=== PATIENT | female | born 1975 | race Caucasian/White ===

== ENCOUNTER 2017-05-31 18:06 | Inpatient (IN) ==
[2017-05-31] MEDS ORDERED: Ondansetron 4 MG/2 ML VIAL IVP ONE ×2 (18:25→20:16)
[2017-05-31] MEDS ORDERED: *HR* HYDROmorphone (PF) 1 MG/ML SYRINGE IVP ONE ×2 (18:28→20:16)
--- NOTE | 2017-05-31 18:30 | Emergency Department Note ---
Disposition Clinical Impression: Small bowel obstruction Disposition: Admitted As Inpatient Condition: Critical Referrals: Taryn Altamirano, ELEVATED GUARD [Primary Care Provider] - Forms: Work/School Release, ED Satisfaction Letter Abdominal Pain HPI - General Chief Complaint: ED Abdominal Pain Stated Complaint: ABD Pain,N/V Time Seen by Provider: 05/31/17 18:23 Source: patient Mode of arrival: ambulatory Limitations: no limitations Nursing Notes Reviewed: Yes Vital Signs Reviewed: Yes - History of Present Illness Pt Subjective Complaint: abdominal pain Onset (ago): hour(s) (2) Consistency: constant Location: diffuse Pain Scale: 10 Quality: stabbing, sharp Radiation: none Migration to: no migration Improves with: nothing Worsens with: nothing Associated symptoms: Reports: nausea Treatments prior to arrival: none - Related Data Home Medications Medication Instructions Recorded Confirmed BuPROPion [Wellbutrin] 75 mg PO DAILY 08/07/16 08/07/16 Paroxetine HCl [Paxil] 10 mg PO DAILY 08/07/16 08/07/16 Previous Rx's Medication Instructions Recorded Promethazine [Phenergan] 25 mg PO Q8HR PRN #12 tablet 08/07/16 Allergies Allergy/AdvReac Type Severity Reaction Status Date / Time Penicillins Allergy Hives Verified 08/07/16 11:21 All systems ED: reviewed and negative except as stated. Constitutional: Denies: fever, chills, weakness Cardiovascular: Denies: chest pain Respiratory: Denies: cough Abdominal Pain PMH - Past Medical History Medical history: Reports: non-contributory Female Surgical History: Reports: cholecystectomy, other Psychiatric history: Reports: anxiety, depression - Social History Smoking status: Never smoker Alcohol use: Reports: none Physical Exam - General Limitations: no limitations General appearance: alert - Head Head exam: atraumatic, normocephalic, normal inspection - Eye Eye exam: Present: normal appearance, PERRL, EOMI - Expanded Eye Exam Pupils: Left: reactive - ENT ENT exam: normal exam, normal oropharynx, mucous membranes moist - Expanded ENT Exam External ear exam: Present: normal external inspection Mouth exam: Present: normal external inspection Teeth exam: Present: normal inspection Throat exam: Present: normal inspection - Neck Neck exam: Present: normal inspection, full ROM, trachea midline - Chest Chest inspection: Present: normal inspection, symmetric chest wall rise - Respiratory Respiratory exam: Present: normal lung sounds bilaterally - Cardiovascular Cardiovascular exam: Present: regular rate, normal rhythm, normal heart sounds - Abdominal Exam Abdominal exam: Present: soft, guarding, normal bowel sounds. Absent: distention Abdominal tenderness: Present: diffuse, moderate - Extremities Exam Extremities exam: Present: normal inspection, full ROM. Absent: tenderness, pedal edema - Expanded Upper Extremity Exam Shoulder exam: Present: normal inspection, full ROM Arm exam: Present: normal inspection, full ROM Elbow exam: Present: normal inspection, full ROM Forearm/Wrist exam: Present: normal inspection, full ROM Hand exam: Present: normal inspection, full ROM Vascular exam: Normal: capillary refill, radial pulse - Expanded Lower Extremity Exam Hip/Pelvis exam: Present: normal inspection, full ROM Upper leg exam: Present: normal inspection, full ROM Knee exam: Present: normal inspection, full ROM Lower leg exam: Present: normal inspection, full ROM Ankle exam: Present: normal inspection, full ROM Foot/toe exam: Present: normal inspection, full ROM Neurovascular/Tendon exam: Absent: motor deficit, sensory deficit, tendon deficit - Back Exam Back exam: Present: normal inspection, full ROM. Absent: tenderness - Neurological Exam Neurological exam: Present: alert, oriented X3 - Expanded Neurological Exam Patient oriented to: Present: person, place, time Coma Scale Eye Opening: Spontaneous Coma Scale Motor Response: Obeys Commands Coma Scale Verbal Response: Oriented Coma Scale Total: 15 - Psychiatric Psychiatric exam: Present: normal affect, normal mood - Skin Skin exam: Present: warm, dry, intact, normal color Course - Consultations Consultation #1: dr. shell consulted will see in the ER Time: 20:18 Vital Signs Temperature 97.4 F L 05/31/17 18:14 Pulse Rate 67 05/31/17 18:14 Respiratory Rate 16 05/31/17 18:14 Blood Pressure 138/89 05/31/17 18:14 O2 Sat by Pulse Oximetry 100 05/31/17 18:14 Temperature 97.4 F L 05/31/17 18:14 Pulse Rate 80 05/31/17 20:17 Respiratory Rate 16 05/31/17 20:17 Blood Pressure 123/71 05/31/17 20:17 O2 Sat by Pulse Oximetry 99 05/31/17 20:17 Oxygen Delivery Oxygen Delivery Room Air Abdominal Pain - Lab Data Result diagrams: 05/31/17 18:33 08/15/17 18:33 Lab Results 05/31/17 05/31/17 Range/Units 18:33 18:33 WBC 11.2 H (4.3-11.1) K/mcL RBC 4.75 (3.82-4.97) M/mcL Hgb 12.8 (11.5-15.4) g/dL Hct 39.9 (35.3-44.9) % MCV 84.0 (83.0-100.0) fL MCH 26.9 L (28.0-33.3) pg MCHC 32.1 (31.6-35.5) g/dL RDW 12.9 (11.5-14.5) % Plt Count 254 (140-400) K/mcL MPV 11.9 (9.4-12.4) fL Immature Gran % 0.4 (0-4) % Seg Neutrophils % 80.0 % Lymphocytes % 13.5 % Monocytes % 5.2 % Eosinophils % 0.5 % Basophils % 0.4 % Neutrophils # 8.9 (1.6-8.9) K/mcL Lymphocytes # 1.5 (0.6-4.6) K/mcL Monocytes # 0.6 (0.0-1.3) K/mcL Eosinophils # 0.1 (0.0-0.6) K/mcL Basophils # 0.0 (0.0-0.2) K/mcL Sodium 141 (136-145) mEq/L Potassium 4.2 (3.5-4.5) mEq/L Chloride 104 (98-109) mEq/L Carbon Dioxide 27 (19-29) mEq/L BUN 15 (7-20) mg/dL Creatinine 0.89 (0.57-1.11) mg/dL Est GFR ( Amer) > 60 (> 60) Est GFR (Non-Af Amer) > 60 (> 60) BUN/Creatinine Ratio 17 (6-26) Glucose 114 H (70-99) mg/dL Calculated Osmolality 294 (280-300) Calcium 10.0 (8.6-10.8) mg/dL Total Bilirubin 0.3 (0.2-1.2) mg/dL Direct Bilirubin 0.1 (0.0-0.5) mg/dL Indirect Bilirubin 0.2 (0.0-1.2) mg/dL AST 24 (5-34) Units/L ALT 16 (0-55) Units/L Alkaline Phosphatase 85 (38-126) Units/L Serum Total Protein 7.6 (6.0-8.3) g/dL Albumin 4.3 (3.5-5.0) g/dL Globulin 3.3 (2.4-3.5) g/dL Albumin/Globulin Ratio 1.3 (1.1-2.2) Amylase 61 (25-125) Units/L Lipase 51 (8-78) Units/L
[2017-05-31 18:40] LABS: Basophils % 0.4 %; Eosinophils # 0.1 K/mcL (0.0-0.6); Eosinophils % 0.5 %; Hematocrit 39.9 % (35.3-44.9); Hemoglobin 12.8 g/dL (11.5-15.4); Immature Granulocytes % 0.4 % (0-4); Lymphocytes # 1.5 K/mcL (0.6-4.6); Lymphocytes % 13.5 %; Mean Corpuscular HGB Conc 32.1 g/dL (31.6-35.5); Mean Corpuscular Hemoglobin 26.9 pg (28.0-33.3); Mean Platelet Volume 11.9 fL (9.4-12.4); Monocytes # 0.6 K/mcL (0.0-1.3); Monocytes % 5.2 %; Neutrophils # 8.9 K/mcL (1.6-8.9); Platelet Count 254 K/mcL (140-400); Red Blood Count 4.75 M/mcL (3.82-4.97); Red Cell Distribution Width 12.9 % (11.5-14.5)
[2017-05-31 18:55] LABS: Alanine Aminotransferase 16 Units/L (0-55); Albumin 4.3 g/dL (3.5-5.0); Albumin/Globulin Ratio 1.3 (1.1-2.2); Alkaline Phosphatase 85 Units/L (38-126); Amylase 61 Units/L (25-125); Aspartate Amino Transferase 24 Units/L (5-34); BUN/Creatinine Ratio 17 (6-26); Bilirubin,Direct 0.1 mg/dL (0.0-0.5); Bilirubin,Indirect 0.2 mg/dL (0.0-1.2); Blood Urea Nitrogen 15 mg/dL (7-20); Carbon Dioxide 27 mEq/L (19-29); Chloride 104 mEq/L (98-109); Globulin 3.3 g/dL (2.4-3.5); Glucose 114 mg/dL (70-99); Lipase 51 Units/L (8-78); Osmolality,Calculated 294 (280-300); Potassium 4.2 mEq/L (3.5-4.5); Sodium 141 mEq/L (136-145); Total Protein 7.6 g/dL (6.0-8.3); eGFR For African Americans > 60 (> 60); eGFR For Non-African Americans > 60 (> 60)
[2017-05-31 18:58] LABS: Bilirubin,Total 0.3 mg/dL (0.2-1.2)
[2017-05-31 20:34] LABS: Prothrombin Time 11.2 Seconds (9.4-12.1)
[2017-05-31 20:37] LABS: Activated Partial Thrombo Time 32.8 Seconds (26.0-36.0)
--- NOTE | 2017-05-31 20:39 | General Surg History&Physical ---
Date of Encounter: 05/31/17 Time of Encounter: 20:30 Assessment and Plan (1) Small bowel obstruction Current Visit: Yes Status: Acute The assessment and plan as outlined above was discussed with the patient and/or family members who expressed understanding and agreement. All questions were answered. Small bowel obstruction with acute abdomen. I have recommended immediate exploratory laparotomy with lysis of adhesions and possible small bowel resection. History of Present Illness Chief complaint: Abdominal pain HPI: Ms. Garcia is a 41 year old female been experiencing intermittent crampy abdominal pain for 6 months. A diagnosis of gallbladder disease was made in she had laparoscopic cholecystectomy at [facility]. 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 She presented to the emergency room today with an acute abdomen and unrelenting abdominal pain associated with vomiting. She has been given narcotic pain medicine and still rates her pain at 7 out of 10. CAT scan of the abdomen was performed and interpreted. She has a high-grade small bowel obstruction with marked dilatation of the mid small bowel area I do not believe that this is an afferent or efferent limb. This appears to be distal small bowel in nature. It is unclear whether this is involving the anterior abdominal wall from my interpretation the CAT scan. The patient has an acute abdomen and may have ischemic or necrotic bowel. I recommended urgent exploratory laparotomy with lysis of adhesions and possible small bowel resection Past Med Surg Social Fam HX - Past Medical History Medical history: non-contributory Psychiatric history: anxiety, depression - Past Surgical History Surgical History: cholecystectomy, other (Gastric bypass.) - Social History Smoking Status: Never smoker Smokeless Tobacco Status: No Alcohol use: none Medications and Allergies BuPROPion [Wellbutrin] 75 mg PO DAILY 08/07/16 [History] Paroxetine HCl [Paxil] 10 mg PO DAILY 08/07/16 [History] Promethazine [Phenergan] 25 mg PO Q8HR PRN #12 tablet 08/07/16 [Rx] Allergies Penicillins Allergy (Verified 08/07/16 11:21) Hives Review of Systems All systems PM: A 10-system review of systems was performed and is negative for pertinent findings except as documented above in the HPI. General Surgery Exam Initial Vital Signs Temp Pulse Resp BP Pulse Ox 97.4 F L 67 16 138/89 100 05/31/17 18:14 05/31/17 18:14 05/31/17 18:14 05/31/17 18:14 05/31/17 18:14 - General physical appearance well developed, well nourished, no distress - ENT normal pinna, normal nares, normal mucosa, no hearing loss, no congestion - Neck no masses, no bruits, trachea midline, no lymphadectomy, no venous distension - Respiratory normal expansion, normal respiratory effort, clear to percussion, clear to auscultation - Cardiovascular Cardiovascular exam: Present: RRR, 15, 16 - Abdomen Abdomen general surgery: Present: tender, guarding, rebound Abdominal Tenderness: Present: diffusely - Neurologic Present: CN 2-12 grossly intact, normal coordination, normal sensation - Psychiatric Psychiatric general surgery: Present: appropriate, oriented to person, oriented to place, oriented to time, speech is normal, memory intact Results - Labs 05/31/17 18:33 05/31/17 18:33 Abnormal lab results WBC 11.2 K/mcL (4.3-11.1) H 05/31/17 18:33 MCH 26.9 pg (28.0-33.3) L 05/31/17 18:33 Glucose 114 mg/dL (70-99) H 05/31/17 18:33 Diabetes panel 05/31/17 Range/Units 18:33 Sodium 141 (136-145) mEq/L Potassium 4.2 (3.5-4.5) mEq/L Chloride 104 (98-109) mEq/L Carbon Dioxide 27 (19-29) mEq/L BUN 15 (7-20) mg/dL Creatinine 0.89 (0.57-1.11) mg/dL Glucose 114 H (70-99) mg/dL Calcium 10.0 (8.6-10.8) mg/dL AST 24 (5-34) Units/L ALT 16 (0-55) Units/L Alkaline Phosphatase 85 (38-126) Units/L Albumin 4.3 (3.5-5.0) g/dL Calcium panel 05/31/17 Range/Units 18:33 Calcium 10.0 (8.6-10.8) mg/dL Albumin 4.3 (3.5-5.0) g/dL Pituitary panel 05/31/17 Range/Units 18:33 Sodium 141 (136-145) mEq/L Potassium 4.2 (3.5-4.5) mEq/L Chloride 104 (98-109) mEq/L Carbon Dioxide 27 (19-29) mEq/L BUN 15 (7-20) mg/dL Creatinine 0.89 (0.57-1.11) mg/dL Glucose 114 H (70-99) mg/dL Calcium 10.0 (8.6-10.8) mg/dL Adrenal panel 05/31/17 Range/Units 18:33 Sodium 141 (136-145) mEq/L Potassium 4.2 (3.5-4.5) mEq/L Chloride 104 (98-109) mEq/L Carbon Dioxide 27 (19-29) mEq/L BUN 15 (7-20) mg/dL Creatinine 0.89 (0.57-1.11) mg/dL Glucose 114 H (70-99) mg/dL Calcium 10.0 (8.6-10.8) mg/dL Total Bilirubin 0.3 (0.2-1.2) mg/dL AST 24 (5-34) Units/L ALT 16 (0-55) Units/L Alkaline Phosphatase 85 (38-126) Units/L Albumin 4.3 (3.5-5.0) g/dL All other labs normal. - Imaging CT scan - abdomen: image reviewed (I personally reviewed the CAT scan of the abdomen. She has marked dilatation of the mid small bowel with feculent material indicating acute on chronic process. I do not see any pneumatosis of the bowel. It is unclear whether there is involvement of the anterior midline in the obstructive process.)
[2017-05-31] MEDS ORDERED: Ringers Solution, Lactated 1,000 ML IVC ONE (20:40)
[2017-05-31] MEDS ORDERED: cefOXitin 2,000 MG in D5% in Water (Mini-Bag+) 100 ML IVPB ONE (20:41)
--- NOTE | 2017-05-31 22:21 | Anesthesia Evaluation PreOp ---
Date of Encounter: 05/31/17 Time of Encounter: 22:17 - Past History Planned Operation: Expl Lap re: SBO Cardiac History: Denies any Significant Hx Pulmonary History: Denies Any Significant HX RADIO FREQUENCY TECHNICIAN History: Other (Anxiety/Depression mainatained on Wellbutrin, Paxil.) Other Medical History: GERD (Nausea maintained on pHenergan) Anesthesia History: No Prior Anesthetic Complications, Past Anesthesia (Brooks-en- Y gastric bypass 2002, Lap Marguerite [[place] earlier in 2016], Hyster) Alcohol Use: none Medications and Allergies Bupropion HCl [Wellbutrin Xl] 300 mg PO QAM 05/31/17 [History] Omeprazole [PriLOSEC] 40 mg PO DAILY 05/31/17 [History] Paroxetine HCl [Paxil] 20 mg PO QAM 05/31/17 [History] Tolterodine LA (24 HR) [Detrol LA] 4 mg PO DAILY 05/31/17 [History] clonazePAM [Klonopin] 0.5 mg PO TID PRN 05/31/17 [History] Allergies Penicillins Allergy (Verified 08/07/16 11:21) Hives - Meds/Allergy Pre-op Review Medications Reviewed: Yes Allergies Reviewed: Yes Beta Blockers on Current Med List: No Anesthesia Results - Labs 05/31/17 18:33 05/31/17 18:33 Laboratory Tests 09/01/15 05/31/17 09:18 18:33 PT 11.2 INR 1.0 APTT 32.8 Est Mean Plasma Glucose 126 Hemoglobin A1c 6.0 Laboratory Results Impressions Abdomen/Pelvis CT 05/31/17 19:11 IMPRESSION: Evidence of high-grade small bowel obstruction as described above. There is are very small supraumbilical anterior midline abdominal wall defect containing a small segment of small bowel. It is unclear go to the point of transition of small bowel caliber change is at the level of hernia. Correlation to exclude entrapment is recommended. Small moderate amount of abdominopelvic free fluid. D/ / Emily Perry Cha, MD / Emily Perry Cha, MD Interpreting Provider: Emily Perry Cha, MD Anesthesia Exam Vital Signs/O2 Sat/Glucose, Most Current Pulse Resp BP Pulse Ox 05/31/17 21:14 92 16 110/60 97 05/31/17 20:17 80 16 123/71 99 Height: 5'3 Weight: 195# BMI = 35 NPO (# of Hours): MNOc - HEENT Pupil (Motor): Pupils equal, EOMI Mallampati: II Teeth: Normal Oral Opening: Greater than 3 - RADIO FREQUENCY TECHNICIAN LOC: Oriented RADIO FREQUENCY TECHNICIAN Motor: Normal RUE, Normal LUE, Normal RLE, Normal LLE, Normal Face RADIO FREQUENCY TECHNICIAN Sensory: Normal: RUE, LUE, RLE, LLE, Face - Cardiac Rhythm: Regular Murmur: None - Pulmonary Breath Sounds: bilateral Clear Respiratory Effort: Symmetrical Anesthesia Assess/Plan ASA Score: 2, E Modified Jeremias Scale for Level of Consciousness: Cooperative, oriented, and tranquil Anesthetic Plan: General Monitoring Plan: Standard Monitors Recovery Plan: PACU Anes Supervising Prov Stmt: PT seen/evaluated, R&B discussed, questions answered and consent obtained. Chicho Nam MD
[2017-05-31] MEDS ORDERED: CefOXitin 1,000 MG VIAL ONE (22:36)
[2017-05-31] MEDS ORDERED: Famotidine 20 MG/2 ML VIAL ONE (22:36)
[2017-05-31] MEDS ORDERED: Acetaminophen IV 1,000 MG/100 ML INFUS..BTL ONE (22:36)
[2017-05-31] MEDS ORDERED: *HR* Rocuronium Bromide 50 MG/5 ML VIAL ONE (22:39)
[2017-05-31] MEDS ORDERED: *HR* FentaNYL (PF) 100 MCG/2 ML VIAL ONE (22:39)
[2017-05-31] MEDS ORDERED: Lidocaine -MPF 2% 2 ML VIAL ONE ×2 (22:39→22:41)
[2017-05-31] MEDS ORDERED: Lidocaine -MPF 4% 5 ML AMPUL ONE (22:39)
[2017-05-31] MEDS ORDERED: *HR* Midazolam HCl 2 MG/2 ML VIAL ONE (22:39)
[2017-05-31] MEDS ORDERED: *HR* Succinylcholine 200 MG/10 ML VIAL IVP ONE (22:39)
[2017-05-31] MEDS ORDERED: *HR* Propofol 200 MG/20 ML VIAL IVP ONE (22:40)
[2017-05-31] MEDS ORDERED: *HR* HYDROmorphone 2 MG/ML SYRINGE ONE (23:30)
[2017-05-31] MEDS ORDERED: Ondansetron 4 MG/2 ML VIAL ONE (23:31)
[2017-05-31] MEDS ORDERED: Dexamethasone 4 MG/ML VIAL ONE (23:31)
[2017-05-31] MEDS ORDERED: *HR* Labetalol 20 MG/4 ML SYRINGE IVP PRN (23:43)
[2017-05-31] MEDS ORDERED: *HR* HYDROmorphone (PF) 1 MG/ML SYRINGE IVP PRN (23:43)
[2017-05-31] MEDS ORDERED: *HR* Promethazine 25 MG/ML VIAL IVP PRN (23:43)
[2017-05-31] MEDS ORDERED: Neostigmine Methylsulfate 3 MG/3 ML SYRINGE ONE (23:55)
--- NOTE | 2017-06-01 00:03 | Operative Note ---
Date of procedure: 05/31/17 Pre-op diagnosis: Small bowel obstruction Post-op diagnosis: same Procedure: Exploratory laparotomy with small bowel resection. Appendectomy. Anesthesia: ANNAMARIE Surgeon: Cullen Langston Estimated blood loss (cc): 25 Specimen: #1 stenotic small bowel segment #2 appendix Condition: stable Disposition: PACU Procedure in Detail: After informed consent patient was taken to major operative suite placed in supine position and given adequate general anesthetic. The abdomen was prepped and draped in sterile fashion utilizing ChloraPrep standard draping techniques. Timeout was taken patient was identified. I made a vertical midline incision and entered the abdomen. There were dense adhesions to the old midline incision above the umbilicus. There was a small hernia just above the umbilicus. The bowel and the small hernia did not appear to be obstructed. The distal bowel did not appear to be obstructed. On the left upper side of the midline incision there were massively dilated small bowel loops with perhaps a 5-1 ratio on diameter compared a nonobstructed bowel. This was followed to an area on the midline it appeared to be a tight stenosis associated with midline scar. The adhesions in this area were lysed and the bowel was mobilized. I was able to get air to go through the stenotic area but I did not feel that this offered adequate patency for normal bowel function. After some examination I decided not to do a stricturoplasty. I performed a short segment small bowel resection. Perhaps 10 cm of small bowel was resected. MARA was used to divide the small bowel proximal and distal hemostatic clamps and silk ligatures were used on the mesentery. A functional end-to-end small bowel anastomosis was carried out with MARA and the resulting enterotomy was closed with TA 60. The anastomosis was circumferentially reinforced with interrupted 3-0 silk stitches. I ran the small bowel back to the Brooks-en-Y anastomosis. The anastomosis was in excellent condition with no evidence of stenosis and is widely patent I ran the distal small bowel which now began to dilate after resection of the area of stenosis. The appendix was normal however after 3 laparotomies I felt appendectomy was reasonable to prevent future exploration for appendicitis. The mesoappendix was divided between clamps and hemostatic ligatures and the base the appendix was divided with a TA 60. This gave an excellent technical result and a complete resolution of her high-grade bowel obstruction. The abdomen was irrigated with copious amounts of antibiotic containing solution. Midline was closed with looped 0 PDS. Skin was closed with interrupted 2-0 Vicryl and skin clips. She tolerated the procedure well. Blood loss was 25 mL's. Specimen was small bowel and appendix
--- NOTE | 2017-06-01 00:51 | Anesthesia Evaluation Post Op ---
Date of Encounter: 06/01/17 Time of Encounter: 00:49 - Vital Signs Vital Signs: Vital Signs/O2 Sat/Glucose, Most Current Temp Pulse Resp BP Pulse Ox 06/01/17 00:40 70 16 122/76 99 06/01/17 00:30 71 16 121/73 99 06/01/17 00:20 61 14 115/70 100 06/01/17 00:10 97.5 F L 76 12 121/68 97 05/31/17 22:25 98.2 F 16 114/62 05/31/17 21:14 92 16 110/60 97 - Lungs Lungs: Clear Ascult./Percussion - Airway Airway: Non-obstructed - Cardiovascular Regular Rate - Mental Status Mental Status: Alert & Oriented, Answers Appropriately, Asleep with brisk response to light stimulation - Pain Pain Scale: 0 Pain Scale used: Numeric (1 - 10) - Nausea Vomiting Nausea Vomiting: Not Present - Hydration Hydration: NPO, Has not voided - Discharge PostOp Status: Transfer Patient to floor Anes Supervising Prov Stmt: Pt seen/evaluated, VSS and pt has met criteria for discharge to floor. - MD Cyril
[2017-06-01] MEDS: Ondansetron 4 MG/2 ML VIAL IVP PRN ×2 (01:12→18:31)
[2017-06-01] MEDS: *HR* HYDROmorphone (PF) 1 MG/ML SYRINGE IVP PRN ×6 (01:13→21:01)
[2017-06-01] MEDS: 0.9 % Sodium Chloride 1,000 ML IVC SCH ×3 (03:31→19:13)
[2017-06-01 04:26] LABS: Bilirubin,Urine Small (Negative); Blood,Urine Negative (Negative); Clarity,Urine Cloudy (Clear); Color,Urine Dark Yellow (Yellow); Glucose,Urine (UA) Normal (Normal); Ketones,Urine Negative (Negative); Leukocyte Esterase,Urine Negative (Negative); Nitrite,Urine Negative (Negative); Protein,Urine Trace mg/dL (Neg-Trace); Specific Gravity,Urine > 1.030 (1.010-1.025); Urobilinogen,Urine Normal (Normal)
[2017-06-01 04:29] LABS: Bacteria,Urine Many per hpf (None-Few); Squamous Epithelial Cell,Urine Many per lpf (None-Few)
[2017-06-01 04:39] LABS: RBC,Urine 0-3 per hpf (0-3)
[2017-06-01 05:23] LABS: Basophils % 0.1 %; Hemoglobin 11.8 g/dL (11.5-15.4); Immature Granulocytes % 0.2 % (0-4); Lymphocytes # 0.4 K/mcL (0.6-4.6); Lymphocytes % 3.8 %; Mean Corpuscular HGB Conc 31.9 g/dL (31.6-35.5); Mean Corpuscular Hemoglobin 27.6 pg (28.0-33.3); Mean Corpuscular Volume 86.4 fL (83.0-100.0); Mean Platelet Volume 12.6 fL (9.4-12.4); Monocytes # 0.7 K/mcL (0.0-1.3); Monocytes % 6.6 %; Platelet Count 199 K/mcL (140-400); Red Blood Count 4.28 M/mcL (3.82-4.97); Red Cell Distribution Width 13.1 % (11.5-14.5); Segmented Neutrophils % 89.3 %
[2017-06-01 05:36] LABS: BUN/Creatinine Ratio 22 (6-26); Blood Urea Nitrogen 14 mg/dL (7-20); Calcium 8.9 mg/dL (8.6-10.8); Carbon Dioxide 27 mEq/L (19-29); Chloride 104 mEq/L (98-109); Glucose 167 mg/dL (70-99); Osmolality,Calculated 292 (280-300); Sodium 139 mEq/L (136-145); eGFR For African Americans > 60 (> 60); eGFR For Non-African Americans > 60 (> 60)
[2017-06-01] MEDS ORDERED: *HR* Heparin 5,000 UNIT/ML VIAL SQ SCH (06:00)
[2017-06-01] MEDS: *HR* Heparin 5,000 UNIT/ML VIAL SQ SCH ×2 (06:02→18:31)
[2017-06-01] MEDS: Pantoprazole 40 MG VIAL IVP SCH (06:02)
[2017-06-01] MEDS: cefOXitin 2,000 MG in D5% in Water (Mini-Bag+) 100 ML IVPB SCH ×2 (06:02→14:59)
--- NOTE | 2017-06-01 07:40 | General Surgery Progress Note ---
<TorrieKenneth - Last Filed: 06/01/17 11:02> Date of Encounter: 06/01/17 Time of Encounter: 06:45 - Assessment and Plan (1) Status post small bowel resection Current Visit: Yes Status: Acute 41 yo female with surgical history of multiple abdominal surgeries. 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 She presented with acute abdomen and unrelenting abdominal pain associated with vomiting on 05/31/17. CT abd/ pelvis without contrast showed high-grade small bowel obstruction. POD#1 exploratory laparotomy with small bowel resection and appendectomy by Dr. Langston. Patient complaints of nausea, no flatus, no BM. Continue NPO for now. Continue pain and supportive care with dilaudid. Continue zofran, protonix for nausea and vomiting prophylaxis. Continue Cefoxitin antibiotic for prophylaxis. Ambulate as tolerated TID. DO NOT insert NGT as patient has history of gastric bypass. (2) DVT prophylaxis Current Visit: Yes Status: Acute Continue Heparin 5000 unit SQ [id number] for DVT prophylaxis Subjective Patient reports: no new complaints, feels better, pain is less, voiding w/o difficulty, no flatus, no bowel movement, afebrile Objective Vital Signs - Last 8 Hours Temp Pulse Resp BP Pulse Ox 06/01/17 04:00 97.3 F L 80 16 100/64 96 06/01/17 03:05 97.0 F L 91 16 108/72 97 06/01/17 02:05 97.3 F L 89 16 116/77 97 06/01/17 01:35 97.1 F L 87 16 114/72 98 06/01/17 01:04 97.8 F 75 16 123/79 99 06/01/17 00:40 70 16 122/76 99 06/01/17 00:30 71 16 121/73 99 06/01/17 00:20 61 14 115/70 100 06/01/17 00:10 97.5 F L 76 12 121/68 97 Intake and Output 05/31/17 05/31/17 06/01/17 15:59 23:59 07:59 Intake Total 1000 / 1000 0 / 0 Output Total 25 / 25 100 / 100 Balance 975 / 975 -100 / -100 Intake: IV Fluids 1000 / 1000 Lactated Ringers 1,000 ML 1000 / 1000 @ 3750 mls/hr IVC .Q16M ONE Rx#:[id number] Oral 0 / 0 Output: Urine 100 / 100 Estimated Blood Loss 25 / 25 Other: Weight 88.6 kg Patient Weight 06/01/17 23:59 Weight 88.6 kg - General physical appearance well developed, well nourished, no distress - Eyes normal ocular movement - ENT atraumatic, normocephalic, CN 2-12 grossly intact - Neck Neck exam: trachea midline - Respiratory normal expansion, clear to auscultation - Cardiovascular Cardiovascular exam: Present: RRR, no murmurs/rubs/gallops - Abdomen Abdomen: Present: bowel sounds present (hypotonic ), soft, tender (expected post -operative tenderness ) - Incision Incision: Present: clean and dry, intact - Neurologic CN 2-12 grossly intact, normal coordination, normal sensation - Psychiatric oriented to time, oriented to person, oriented to place, speech is normal, memory intact - Labs 06/01/17 04:28 06/01/17 04:28 Diabetes panel 06/01/17 Range/Units 04:28 Sodium 139 (136-145) mEq/L Potassium 4.0 (3.5-4.5) mEq/L Chloride 104 (98-109) mEq/L Carbon Dioxide 27 (19-29) mEq/L BUN 14 (7-20) mg/dL Creatinine 0.64 (0.57-1.11) mg/dL Glucose 167 H (70-99) mg/dL Calcium 8.9 (8.6-10.8) mg/dL Calcium panel 06/01/17 Range/Units 04:28 Calcium 8.9 (8.6-10.8) mg/dL Pituitary panel 06/01/17 Range/Units 04:28 Sodium 139 (136-145) mEq/L Potassium 4.0 (3.5-4.5) mEq/L Chloride 104 (98-109) mEq/L Carbon Dioxide 27 (19-29) mEq/L BUN 14 (7-20) mg/dL Creatinine 0.64 (0.57-1.11) mg/dL Glucose 167 H (70-99) mg/dL Calcium 8.9 (8.6-10.8) mg/dL Adrenal panel 06/01/17 Range/Units 04:28 Sodium 139 (136-145) mEq/L Potassium 4.0 (3.5-4.5) mEq/L Chloride 104 (98-109) mEq/L Carbon Dioxide 27 (19-29) mEq/L BUN 14 (7-20) mg/dL Creatinine 0.64 (0.57-1.11) mg/dL Glucose 167 H (70-99) mg/dL Calcium 8.9 (8.6-10.8) mg/dL - VTE Documentation of Mechanical Device: Intermittent pneumatic compression device Consult Discharge Plan - Plan Referrals: Taryn Altamirano, MORTGAGE LOAN COMPUTATION CLERK [Primary Care Provider] - <Cullen Langston - Last Filed: 06/02/17 08:14> Date of Encounter: 06/01/17 - Assessment and Plan (1) Small bowel obstruction Current Visit: Yes Status: Acute Objective Vital Signs - Last 8 Hours Temp Pulse Resp BP Pulse Ox 06/02/17 06:50 98.5 F 88 16 112/73 90 06/02/17 04:28 99.2 F 97 16 102/62 95 Intake and Output 06/01/17 06/02/17 06/02/17 23:59 07:59 15:59 Intake Total 1000 / 1000 0 / 0 Output Total 600 / 600 300 / 300 Balance 400 / 400 -300 / -300 Intake: IV Fluids 1000 / 1000 0.9 % Sodium Chloride 1, 1000 / 1000 000 ML @ 75 mls/hr IVC . [id number] SELMA Rx#: [id number] Oral 0 / 0 0 / 0 Output: Urine 600 / 600 300 / 300 Other: Meal NPO Percent of Meal Consumed 0% # Bowel Movements 0 Weight 89.5 kg Blood Glucose* 100 91 Patient Weight 06/02/17 23:59 Weight 89.5 kg - Labs 06/01/17 04:28 06/01/17 04:28 - Attending Attestation I examined this patient and my medical decision-making was reviewed with the Resident Physician. I agree with the documented findings, disposition and treatment plan as described except to the extent set forth below. The patient is seen and evaluated with the resident morning rounds. She is doing quite well after surgery. The incision is clean and dry. She is not having any nausea. She has no bowel sounds yet and we will keep her nothing by mouth Cullen Langston MD FACS
[2017-06-01] MEDS: Ketorolac 15 MG/ML VIAL IVP SCH ×2 (18:30→23:19)
[2017-06-02] MEDS: Ketorolac 15 MG/ML VIAL IVP SCH ×3 (05:41→17:40)
[2017-06-02] MEDS: Pantoprazole 40 MG VIAL IVP SCH (05:41)
[2017-06-02] MEDS: *HR* Heparin 5,000 UNIT/ML VIAL SQ SCH ×2 (05:41→17:40)
--- NOTE | 2017-06-02 08:51 | General Surgery Progress Note ---
<BrownleeKenneth - Last Filed: 06/02/17 13:00> Date of Encounter: 06/02/17 Time of Encounter: 06:20 - Assessment and Plan (1) Status post small bowel resection Current Visit: Yes Status: Acute 41 yo female with surgical history of multiple abdominal surgeries. 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 She presented with acute abdomen and unrelenting abdominal pain associated with vomiting on 05/31/17. CT abd/ pelvis without contrast showed high-grade small bowel obstruction. POD#2 exploratory laparotomy with small bowel resection and appendectomy by Dr. Langston. Patient continues to have nausea, no flatus, no BM. Continue NPO for now. Continue pain and supportive care with dilaudid. Continue zofran, protonix, add promethazine for nausea and vomiting prophylaxis. Continue Cefoxitin antibiotic for prophylaxis. Ambulate as tolerated TID. DO NOT insert NGT as patient has history of gastric bypass. (2) DVT prophylaxis Current Visit: Yes Status: Acute Continue Heparin 5000 unit SQ [id number] for DVT prophylaxis Subjective Patient reports: no new complaints, feels better, pain is less, voiding w/o difficulty, no flatus, no bowel movement, nausea, afebrile Objective Vital Signs - Last 8 Hours Temp Pulse Resp BP Pulse Ox 06/02/17 06:50 98.5 F 88 16 112/73 90 06/02/17 04:28 99.2 F 97 16 102/62 95 Intake and Output 06/01/17 06/02/17 06/02/17 23:59 07:59 15:59 Intake Total 1000 / 1000 0 / 0 Output Total 600 / 600 300 / 300 Balance 400 / 400 -300 / -300 Intake: IV Fluids 1000 / 1000 0.9 % Sodium Chloride 1, 1000 / 1000 000 ML @ 75 mls/hr IVC . [id number] [facility] Rx#: [id number] Oral 0 / 0 0 / 0 Output: Urine 600 / 600 300 / 300 Other: Meal NPO Percent of Meal Consumed 0% # Bowel Movements 0 Weight 89.5 kg Blood Glucose* 100 91 Patient Weight 06/02/17 23:59 Weight 89.5 kg - General physical appearance well developed, well nourished, no distress - Eyes normal ocular movement - ENT atraumatic, normocephalic, CN 2-12 grossly intact - Neck Neck exam: trachea midline - Respiratory normal expansion, normal respiratory effort, clear to auscultation - Cardiovascular Cardiovascular exam: Present: tachycardia, regular rhythm - Abdomen Abdomen: Present: bowel sounds present (hypotonic ), soft, tender (expected post -operative tenderness ) - Incision Incision: Present: inflamed, clean and dry (covered with gauze) - Psychiatric oriented to time, oriented to person, oriented to place, memory intact - Labs 06/01/17 04:28 06/01/17 04:28 - VTE Documentation of Mechanical Device: Intermittent pneumatic compression device Consult Discharge Plan - Plan Referrals: Taryn Altamirano, RESPIRATORY CARE INSTRUCTOR [Primary Care Provider] - <Cullen Langston - Last Filed: 06/02/17 15:27> Date of Encounter: 06/02/17 - Assessment and Plan (1) Small bowel obstruction Current Visit: Yes Status: Acute Objective Vital Signs - Last 8 Hours Temp Pulse Resp BP Pulse Ox 06/02/17 14:35 97.6 F 67 16 119/81 99 06/02/17 10:32 98.7 F 93 16 106/70 93 Intake and Output 06/01/17 06/02/17 06/02/17 23:59 07:59 15:59 Intake Total 1000 / 1000 0 / 0 1000 / 1000 Output Total 600 / 600 300 / 300 675 / 675 Balance 400 / 400 -300 / -300 325 / 325 Intake: IV Fluids 1000 / 1000 1000 / 1000 0.9 % Sodium Chloride 1, 1000 / 1000 1000 / 1000 000 ML @ 75 mls/hr IVC . [id number] [facility] Rx#: [id number] Oral 0 / 0 0 / 0 0 / 0 Output: Urine 600 / 600 300 / 300 675 / 675 Other: Meal NPO NPO Percent of Meal Consumed 0% 0% # Bowel Movements 0 0 Weight 89.5 kg Blood Glucose* 100 91 93 Patient Weight 06/02/17 23:59 Weight 89.5 kg - Labs 06/01/17 04:28 06/01/17 04:28 - Attending Attestation I examined this patient and my medical decision-making was reviewed with the Resident Physician. I agree with the documented findings, disposition and treatment plan as described except to the extent set forth below. The patient was seen and evaluated on morning rounds with the resident. She is doing very well after surgery but has no bowel sounds. We will keep her nothing by mouth and continue IV hydration and await return of bowel function from her expected postoperative ileus Cullen Langston MD FACS
[2017-06-02] MEDS: 0.9 % Sodium Chloride 1,000 ML IVC SCH ×2 (09:22→23:05)
[2017-06-02] MEDS: *HR* HYDROmorphone (PF) 1 MG/ML SYRINGE IVP PRN ×2 (16:14→23:35)
[2017-06-02] MEDS: Ondansetron 4 MG/2 ML VIAL IVP SCH ×3 (16:14→23:34)
[2017-06-02] MEDS: *HR* Promethazine 25 MG/ML VIAL IVP SCH ×3 (16:14→23:34)
[2017-06-03] MEDS: Ondansetron 4 MG/2 ML VIAL IVP SCH ×5 (03:57→20:04)
[2017-06-03] MEDS: *HR* Promethazine 25 MG/ML VIAL IVP SCH ×5 (03:57→20:05)
[2017-06-03] MEDS: *HR* HYDROmorphone (PF) 1 MG/ML SYRINGE IVP PRN (04:06)
[2017-06-03] MEDS: Pantoprazole 40 MG VIAL IVP SCH (05:53)
[2017-06-03] MEDS: *HR* Heparin 5,000 UNIT/ML VIAL SQ SCH ×2 (05:54→17:53)
[2017-06-03 06:19] LABS: Basophils % 0.4 %; Eosinophils # 0.1 K/mcL (0.0-0.6); Eosinophils % 2.2 %; Hematocrit 29.1 % (35.3-44.9); Immature Granulocytes % 0.7 % (0-4); Immature Platelets 8.3 % (1.1-6.1); Mean Corpuscular HGB Conc 31.3 g/dL (31.6-35.5); Mean Corpuscular Hemoglobin 27.7 pg (28.0-33.3); Mean Corpuscular Volume 88.4 fL (83.0-100.0); Mean Platelet Volume 12.4 fL (9.4-12.4); Monocytes # 0.4 K/mcL (0.0-1.3); Neutrophils # 3.8 K/mcL (1.6-8.9); Platelet Count 139 K/mcL (140-400); Red Blood Count 3.29 M/mcL (3.82-4.97); Red Cell Distribution Width 13.4 % (11.5-14.5); Segmented Neutrophils % 70.7 %
[2017-06-03 06:20] LABS: Hemoglobin 9.1 g/dL (11.5-15.4)
[2017-06-03 06:28] LABS: BUN/Creatinine Ratio 20 (6-26); Blood Urea Nitrogen 11 mg/dL (7-20); Calcium 8.1 mg/dL (8.6-10.8); Carbon Dioxide 24 mEq/L (19-29); Chloride 107 mEq/L (98-109); Glucose 66 mg/dL (70-99); Osmolality,Calculated 286 (280-300); Potassium 3.1 mEq/L (3.5-4.5); Sodium 139 mEq/L (136-145); eGFR For African Americans > 60 (> 60); eGFR For Non-African Americans > 60 (> 60)
[2017-06-03] MEDS: D5% in 0.45% NACL w KCl 20 MEQ/1,000 ML MLS IVC SCH ×2 (06:28→16:21)
--- NOTE | 2017-06-03 07:57 | General Surgery Progress Note ---
<TorrieKenneth - Last Filed: 06/03/17 14:58> Date of Encounter: 06/03/17 Time of Encounter: 06:00 - Assessment and Plan (1) Status post small bowel resection Current Visit: Yes Status: Acute 41 yo female with surgical history of multiple abdominal surgeries. She had laparoscopic cholecystectomy at 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 She presented with acute abdomen and unrelenting abdominal pain associated with vomiting on 05/31/17. CT abd/ pelvis without contrast showed high-grade small bowel obstruction. POD#3 exploratory laparotomy with small bowel resection and appendectomy by Dr. Langston. Patient continues to have nausea, no flatus, no BM. Continue NPO for now. Pain management with Toredal and breakthrough pain with Dilaudid. Continue zofran, protonix, add promethazine for nausea and vomiting prophylaxis. Ambulate as tolerated TID. DO NOT insert NGT as patient has history of gastric bypass. (2) Hypokalemia Current Visit: Yes Status: Acute A.M. Labs show K+ = 3.1 KCl dextrose started this a.m. Continue to monitor with a.m. labs (3) DVT prophylaxis Current Visit: Yes Status: Acute Continue Heparin 5000 unit SQ [id number] for DVT prophylaxis Subjective Patient reports: no new complaints, voiding w/o difficulty, no flatus, no bowel movement, afebrile Objective Vital Signs - Last 8 Hours Temp Pulse Resp BP Pulse Ox 06/03/17 06:46 99.4 F 86 16 107/67 94 06/03/17 04:12 99.8 F H 90 16 107/62 92 06/03/17 00:18 98.4 F 97 16 103/54 90 Intake and Output 06/02/17 06/02/17 06/03/17 15:59 23:59 07:59 Intake Total 1000 / 1000 1000 / 1000 450 / 450 Output Total 675 / 675 0 / 0 500 / 500 Balance 325 / 325 1000 / 1000 -50 / -50 Intake: IV Fluids 1000 / 1000 1000 / 1000 450 / 450 0.9 % Sodium Chloride 1, 1000 / 1000 1000 / 1000 450 / 450 000 ML @ 75 mls/hr IVC . [id number] [facility] Rx#: [id number] Oral 0 / 0 0 / 0 0 / 0 Output: Urine 675 / 675 0 / 0 500 / 500 Other: Meal NPO NPO Percent of Meal Consumed 0% 0% # Bowel Movements 0 0 Blood Glucose* 93 93 86 - General physical appearance well developed, well nourished, no distress - Eyes normal ocular movement - ENT atraumatic, normocephalic, CN 2-12 grossly intact - Neck Neck exam: trachea midline - Respiratory normal expansion, clear to auscultation - Cardiovascular Cardiovascular exam: Present: RRR, no murmurs/rubs/gallops - Incision Incision: Present: clean and dry, intact - Neurologic normal coordination, normal sensation - Psychiatric oriented to time, oriented to person, oriented to place, speech is normal, memory intact - Labs 06/03/17 05:44 06/03/17 05:44 Diabetes panel 06/03/17 Range/Units 05:44 Sodium 139 (136-145) mEq/L Potassium 3.1 L (3.5-4.5) mEq/L Chloride 107 (98-109) mEq/L Carbon Dioxide 24 (19-29) mEq/L BUN 11 (7-20) mg/dL Creatinine 0.55 L (0.57-1.11) mg/dL Glucose 66 L (70-99) mg/dL Calcium 8.1 L (8.6-10.8) mg/dL Calcium panel 06/03/17 Range/Units 05:44 Calcium 8.1 L (8.6-10.8) mg/dL Pituitary panel 06/03/17 Range/Units 05:44 Sodium 139 (136-145) mEq/L Potassium 3.1 L (3.5-4.5) mEq/L Chloride 107 (98-109) mEq/L Carbon Dioxide 24 (19-29) mEq/L BUN 11 (7-20) mg/dL Creatinine 0.55 L (0.57-1.11) mg/dL Glucose 66 L (70-99) mg/dL Calcium 8.1 L (8.6-10.8) mg/dL Adrenal panel 06/03/17 Range/Units 05:44 Sodium 139 (136-145) mEq/L Potassium 3.1 L (3.5-4.5) mEq/L Chloride 107 (98-109) mEq/L Carbon Dioxide 24 (19-29) mEq/L BUN 11 (7-20) mg/dL Creatinine 0.55 L (0.57-1.11) mg/dL Glucose 66 L (70-99) mg/dL Calcium 8.1 L (8.6-10.8) mg/dL - VTE Documentation of Mechanical Device: Intermittent pneumatic compression device Consult Discharge Plan - Plan Referrals: Taryn Altamirano, ORDER CHECKER [Primary Care Provider] - <Cullen Langston - Last Filed: 06/03/17 17:30> Date of Encounter: 06/03/17 - Assessment and Plan (1) Small bowel obstruction Current Visit: Yes Status: Acute Objective Vital Signs - Last 8 Hours Temp Pulse Resp BP Pulse Ox 06/03/17 14:19 97.8 F 70 16 104/70 92 06/03/17 10:43 98.6 F 85 16 131/77 99 Intake and Output 06/03/17 06/03/17 06/03/17 07:59 15:59 23:59 Intake Total 450 / 450 1000 / 1000 0 / 0 Output Total 500 / 500 200 / 200 Balance -50 / -50 800 / 800 0 / 0 Intake: IV Fluids 450 / 450 1000 / 1000 0.9 % Sodium Chloride 1, 450 / 450 000 ML @ 75 mls/hr IVC . [id number] [facility] Rx#: [id number] KCl 20mEq IN D5%-0.45 1000 / 1000 NACL 20 meq In 1,000 ml @ 125 mls/hr IVC .Q8H [facility] Rx#:[id number] Oral 0 / 0 0 / 0 0 / 0 Output: Urine 500 / 500 200 / 200 Other: Meal NPO NPO Percent of Meal Consumed 0% 0% # Bowel Movements 0 0 Blood Glucose* 86 102 94 - Labs 06/03/17 05:44 06/03/17 05:44 Diabetes panel 06/03/17 Range/Units 05:44 Sodium 139 (136-145) mEq/L Potassium 3.1 L (3.5-4.5) mEq/L Chloride 107 (98-109) mEq/L Carbon Dioxide 24 (19-29) mEq/L BUN 11 (7-20) mg/dL Creatinine 0.55 L (0.57-1.11) mg/dL Glucose 66 L (70-99) mg/dL Calcium 8.1 L (8.6-10.8) mg/dL Calcium panel 06/03/17 Range/Units 05:44 Calcium 8.1 L (8.6-10.8) mg/dL Pituitary panel 06/03/17 Range/Units 05:44 Sodium 139 (136-145) mEq/L Potassium 3.1 L (3.5-4.5) mEq/L Chloride 107 (98-109) mEq/L Carbon Dioxide 24 (19-29) mEq/L BUN 11 (7-20) mg/dL Creatinine 0.55 L (0.57-1.11) mg/dL Glucose 66 L (70-99) mg/dL Calcium 8.1 L (8.6-10.8) mg/dL Adrenal panel 06/03/17 Range/Units 05:44 Sodium 139 (136-145) mEq/L Potassium 3.1 L (3.5-4.5) mEq/L Chloride 107 (98-109) mEq/L Carbon Dioxide 24 (19-29) mEq/L BUN 11 (7-20) mg/dL Creatinine 0.55 L (0.57-1.11) mg/dL Glucose 66 L (70-99) mg/dL Calcium 8.1 L (8.6-10.8) mg/dL - Attending Attestation I examined this patient and my medical decision-making was reviewed with the Resident Physician. I agree with the documented findings, disposition and treatment plan as described except to the extent set forth below. The patient is seen evaluated on afternoon rounds with the resident. She has normal bowel sounds I will start her on clear liquid diet. Cullen Langston MD FACS
[2017-06-03] MEDS ORDERED: *HR* HYDROmorphone (PF) 1 MG/ML SYRINGE IVP PRN (08:22)
[2017-06-03] MEDS: Ketorolac 15 MG/ML VIAL IVP SCH ×2 (12:09→17:53)
[2017-06-03] MEDS: Metoclopramide 10 MG/2 ML VIAL IVP SCH ×2 (12:09→17:52)
[2017-06-03] MEDS ORDERED: Ibuprofen 400 MG TABLET PO PRN (15:31)
[2017-06-04] MEDS: *HR* Promethazine 25 MG/ML VIAL IVP SCH ×7 (04:50→23:56)
[2017-06-04] MEDS: Ondansetron 4 MG/2 ML VIAL IVP SCH ×7 (04:50→23:54)
[2017-06-04] MEDS: Ketorolac 15 MG/ML VIAL IVP SCH ×2 (05:00)
[2017-06-04] MEDS: Metoclopramide 10 MG/2 ML VIAL IVP SCH ×5 (05:00→23:56)
[2017-06-04] MEDS: *HR* Heparin 5,000 UNIT/ML VIAL SQ SCH ×2 (05:00→17:25)
[2017-06-04] MEDS: Pantoprazole 40 MG VIAL IVP SCH (05:07)
[2017-06-04 06:22] LABS: Basophils % 0.2 %; Eosinophils # 0.2 K/mcL (0.0-0.6); Eosinophils % 3.6 %; Hematocrit 31.1 % (35.3-44.9); Hemoglobin 9.7 g/dL (11.5-15.4); Immature Granulocytes % 0.5 % (0-4); Immature Platelets 11.1 % (1.1-6.1); Lymphocytes # 0.9 K/mcL (0.6-4.6); Lymphocytes % 21.9 %; Mean Corpuscular HGB Conc 31.2 g/dL (31.6-35.5); Mean Corpuscular Hemoglobin 27.4 pg (28.0-33.3); Mean Corpuscular Volume 87.9 fL (83.0-100.0); Mean Platelet Volume 12.9 fL (9.4-12.4); Monocytes # 0.3 K/mcL (0.0-1.3); Monocytes % 7.1 %; Neutrophils # 2.7 K/mcL (1.6-8.9); Platelet Count 143 K/mcL (140-400); Red Blood Count 3.54 M/mcL (3.82-4.97); Red Cell Distribution Width 13.3 % (11.5-14.5); Segmented Neutrophils % 66.7 %
[2017-06-04 06:38] LABS: BUN/Creatinine Ratio 8 (6-26); Blood Urea Nitrogen 5 mg/dL (7-20); Calcium 8.4 mg/dL (8.6-10.8); Carbon Dioxide 26 mEq/L (19-29); Chloride 110 mEq/L (98-109); Glucose 91 mg/dL (70-99); Osmolality,Calculated 293 (280-300); Potassium 3.6 mEq/L (3.5-4.5); Sodium 143 mEq/L (136-145); eGFR For African Americans > 60 (> 60); eGFR For Non-African Americans > 60 (> 60)
[2017-06-04] MEDS: D5% in 0.45% NACL w KCl 20 MEQ/1,000 ML MLS IVC SCH ×2 (11:08)
[2017-06-04] MEDS: Levofloxacin 250 MG/50 ML 250 MG/50 ML BAG IVPB SCH (11:11)
[2017-06-04] MEDS ORDERED: D5% in 0.45% NACL w KCl 20 MEQ/1,000 ML MLS IVC SCH (14:45)
--- NOTE | 2017-06-04 14:45 | General Surgery Progress Note ---
Date of Encounter: 06/04/17 Time of Encounter: 14:43 - Assessment and Plan (1) DVT prophylaxis Current Visit: Yes Status: Acute (2) Small bowel obstruction Current Visit: Yes Status: Resolved (3) Status post small bowel resection Current Visit: Yes Status: Acute tolerating clears ok adv to fulls prn pain control gi/dvt prophylaxis OOB to chair/ambulate Subjective Patient reports: no new complaints, feels better, still having pain, pain is less, tolerating liquids well, flatus, no bowel movement Objective Vital Signs - Last 8 Hours Temp Pulse Resp BP Pulse Ox 06/04/17 10:46 98.2 F 73 14 119/74 96 06/04/17 07:44 98.5 F 67 18 116/74 94 Intake and Output 06/03/17 06/04/17 06/04/17 23:59 07:59 15:59 Intake Total 1000 / 1000 0 / 0 1000 / 1000 Output Total 0 / 0 1300 / 1300 Balance 1000 / 1000 -1300 / -1300 1000 / 1000 Intake: IV Fluids 1000 / 1000 1000 / 1000 KCl 20mEq IN D5%-0.45 1000 / 1000 1000 / 1000 NACL 20 meq In 1,000 ml @ 125 mls/hr IVC .Q8H [facility] Rx#:[id number] Oral 0 / 0 0 / 0 Output: Urine 0 / 0 1300 / 1300 Other: Meal NPO Percent of Meal Consumed 0% Weight 90.1 kg Blood Glucose* 94 77 Patient Weight 06/04/17 23:59 Weight 90.1 kg - General physical appearance well developed, well nourished, no distress - Eyes PERRL, normal ocular movement - ENT normal mucosa, normocephalic - Neck Neck exam: trachea midline - Respiratory normal expansion, clear to auscultation - Cardiovascular Cardiovascular exam: Present: RRR - Abdomen Abdomen: Present: bowel sounds present, soft, tender (appropriate post op tenderness). Absent: guarding, rebound - Incision Incision: Present: clean and dry, intact - Integumentary no rash - Neurologic CN 2-12 grossly intact - Musculoskeletal normal posture - Labs 06/04/17 05:34 06/04/17 05:34 Short CBC 06/04/17 Range/Units 05:34 WBC 4.1 L (4.3-11.1) K/mcL Hgb 9.7 L (11.5-15.4) g/dL Hct 31.1 L (35.3-44.9) % Plt Count 143 (140-400) K/mcL Neutrophils # 2.7 (1.6-8.9) K/mcL BMP 06/04/17 Range/Units 05:34 Sodium 143 (136-145) mEq/L Potassium 3.6 (3.5-4.5) mEq/L Chloride 110 H (98-109) mEq/L Carbon Dioxide 26 (19-29) mEq/L BUN 5 L (7-20) mg/dL Creatinine 0.60 (0.57-1.11) mg/dL Glucose 91 (70-99) mg/dL Calcium 8.4 L (8.6-10.8) mg/dL Vital Signs Temp Pulse Resp BP Pulse Ox 06/04/17 10:46 98.2 F 73 14 119/74 96 06/04/17 07:44 98.5 F 67 18 116/74 94 06/04/17 05:09 97.6 F 71 18 120/78 96 06/04/17 00:41 98.6 F 70 18 102/66 96 06/03/17 19:26 98.6 F 71 16 117/72 92 Intake and Output 06/03/17 06/04/17 06/04/17 23:59 07:59 15:59 Intake Total 1000 / 1000 0 / 0 1000 / 1000 Output Total 0 / 0 1300 / 1300 Balance 1000 / 1000 -1300 / -1300 1000 / 1000 Intake: IV Fluids 1000 / 1000 1000 / 1000 KCl 20mEq IN D5%-0.45 1000 / 1000 1000 / 1000 NACL 20 meq In 1,000 ml @ 125 mls/hr IVC .Q8H [facility] Rx#:[id number] Oral 0 / 0 0 / 0 Output: Urine 0 / 0 1300 / 1300 Other: Meal NPO Percent of Meal Consumed 0% Weight 90.1 kg Blood Glucose* 94 77 Patient Weight 06/04/17 23:59 Weight 90.1 kg - VTE Documentation of Mechanical Device: Intermittent pneumatic compression device Consult Discharge Plan - Plan Referrals: Taryn Altamirano, FRONT OFFICE SECRETARY [Primary Care Provider] -
[2017-06-04] MEDS: *HR* OxyCODONE/APAP 5/325 TABLET PO PRN ×2 (16:09→22:09)
[2017-06-05] MEDS: Ondansetron 4 MG/2 ML VIAL IVP SCH ×2 (04:14→08:46)
[2017-06-05] MEDS: *HR* Promethazine 25 MG/ML VIAL IVP SCH ×2 (04:14→08:46)
[2017-06-05] MEDS: *HR* Heparin 5,000 UNIT/ML VIAL SQ SCH (06:03)
[2017-06-05] MEDS: Metoclopramide 10 MG/2 ML VIAL IVP SCH (06:05)
[2017-06-05 07:11] VITALS: BP 110/75
[2017-06-05 07:43] LABS: Basophils % 0.3 %; Eosinophils # 0.1 K/mcL (0.0-0.6); Eosinophils % 2.7 %; Hematocrit 28.1 % (35.3-44.9); Hemoglobin 8.8 g/dL (11.5-15.4); Immature Granulocytes % 0.3 % (0-4); Lymphocytes # 0.9 K/mcL (0.6-4.6); Mean Corpuscular HGB Conc 31.3 g/dL (31.6-35.5); Mean Corpuscular Hemoglobin 27.2 pg (28.0-33.3); Mean Corpuscular Volume 86.7 fL (83.0-100.0); Mean Platelet Volume 12.3 fL (9.4-12.4); Monocytes # 0.3 K/mcL (0.0-1.3); Monocytes % 8.5 %; Neutrophils # 2.4 K/mcL (1.6-8.9); Platelet Count 159 K/mcL (140-400); Red Blood Count 3.24 M/mcL (3.82-4.97); Red Cell Distribution Width 13.3 % (11.5-14.5); Segmented Neutrophils % 64.2 %
[2017-06-05 07:57] LABS: BUN/Creatinine Ratio 10 (6-26); Blood Urea Nitrogen 6 mg/dL (7-20); Calcium 8.2 mg/dL (8.6-10.8); Carbon Dioxide 28 mEq/L (19-29); Chloride 110 mEq/L (98-109); Glucose 96 mg/dL (70-99); Osmolality,Calculated 295 (280-300); Potassium 3.6 mEq/L (3.5-4.5); Sodium 144 mEq/L (136-145); eGFR For African Americans > 60 (> 60); eGFR For Non-African Americans > 60 (> 60)
[2017-06-05] MEDS: Levofloxacin 250 MG/50 ML 250 MG/50 ML BAG IVPB SCH (08:50)
--- NOTE | 2017-06-05 10:06 | Discharge Summary ---
Date of Encounter: 06/05/17 Time of Encounter: 09:40 - Discharge Diagnosis (1) Status post small bowel resection Priority: Primary Status: Acute (2) Small bowel obstruction Priority: Primary Status: Resolved - Discharge Medications Prescriptions: Docusate Sodium [Colace] 100 mg PO BID #30 capsule OxyCODONE/APAP 5/325 [Percocet 5/325 MG] 1 each PO BID #15 tablet Home Medications: Bupropion HCl [Wellbutrin Xl] 300 mg PO QAM 05/31/17 [History] Omeprazole [PriLOSEC] 40 mg PO DAILY 05/31/17 [History] Paroxetine HCl [Paxil] 20 mg PO QAM 05/31/17 [History] Tolterodine LA (24 HR) [Detrol LA] 4 mg PO DAILY 05/31/17 [History] clonazePAM [Klonopin] 0.5 mg PO TID PRN 05/31/17 [History] Docusate Sodium [Colace] 100 mg PO BID #30 capsule 06/05/17 [Rx] OxyCODONE/APAP 5/325 [Percocet 5/325 MG] 1 each PO BID #15 tablet 06/05/17 [Rx] Allergies/Adverse Reactions: 3 Allergy/AdvReac Type Severity Reaction Status Date / Time Penicillins Allergy Hives Verified 08/07/16 11:21 Date of admission: 05/31/17 21:19 Primary care physician: Taryn Altamirano CNP Discharging clinician: Geno Alberto Anticipated date of discharge: 06/05/17 - Patient Status Disposition: Home, Self-Care Condition: Good - Discharge Instructions Follow Up With: Taryn Altamirano CNP [Primary Care Provider] - Additional Instructions: Patient can shower today. Avoid lifting over 10 pounds or extraneous activities for 4-[address] for now. Walk as often as you are able to. Use incentive spirometer to help with breathing. This is important to help prevent lung infections. Keep incision clean and dry. OK to wash skin around incision with mild soap and water. Incision can be open to air. Take pain medication as prescribed. Ok to take home meds. Call us or go to emergency room for sudden chest pain or trouble breathing, fever > 101F, pain or tenderness in the leg, incision separates, nausea and vomiting that won't go away. Hospital course: Mrs. Garcia is a 41 yo female with surgical history of multiple abdominal surgeries. 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 She presented with acute abdomen and unrelenting abdominal pain associated with vomiting on 05/31/17. CT abd/ pelvis without contrast showed high-grade small bowel obstruction. She is POD#5 exploratory laparotomy with small bowel resection and appendectomy by Dr. Langston. She is recovering well. Ambulating three times a day without assistance. She is tolerating PO diet with return of bowel function. Pain is well managed with percocet. Microbiology reveals UTI with E. Coli and Levoquin 250mg day#10/26 is started. 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 She is to follow-up with PCP. She will be discharged with Levoquin for continuation of therapy. Colace 100mg BID for bowel movement. Percocet 5/325 for pain management. - Time Spent with Patient Total time spent providing and/or coordinating discharge services: Greater than 30 minutes - Constitutional Vitals: Temp Pulse Resp BP Pulse Ox 97.7 F 70 15 110/75 97 06/05/17 07:09 06/05/17 07:09 06/05/17 07:09 06/05/17 07:09 06/05/17 07:09 - VTE Documentation of Mechanical Device: Intermittent pneumatic compression device
--- NOTE | 2017-06-05 10:25 | Discharge Summary ---
<Kenneth Borwnlee - Last Filed: 06/05/17 10:43> Date of Encounter: 06/05/17 Time of Encounter: 09:30 - Discharge Diagnosis (1) Status post small bowel resection Priority: Primary Status: Acute (2) Small bowel obstruction Priority: Primary Status: Resolved (3) UTI (urinary tract infection) Priority: Secondary Status: Acute Comments: Continue with Levaquin 250mg antibiotic treatment. Qualifiers: Qualified Code(s): N39.0 - Urinary tract infection, site not specified (4) Carcinoid tumor Priority: Secondary Status: Acute Comments: of appendix. Follow-up with PCP. - Discharge Medications Prescriptions: OxyCODONE/APAP 5/325 [Percocet 5/325 MG] 1 each PO Q4HR PRN #30 tablet PRN Reason: Pain Docusate Sodium [Colace] 100 mg PO BID #30 capsule Levofloxacin [Levaquin] 250 mg PO DAILY #10 tablet Levofloxacin [Levaquin] 250 mg PO DAILY #3 tablet Home Medications: Bupropion HCl [Wellbutrin Xl] 300 mg PO QAM 05/31/17 [History] Omeprazole [PriLOSEC] 40 mg PO DAILY 05/31/17 [History] Paroxetine HCl [Paxil] 20 mg PO QAM 05/31/17 [History] Tolterodine LA (24 HR) [Detrol LA] 4 mg PO DAILY 05/31/17 [History] clonazePAM [Klonopin] 0.5 mg PO TID PRN 05/31/17 [History] Docusate Sodium [Colace] 100 mg PO BID #30 capsule 06/05/17 [Rx] Levofloxacin [Levaquin] 250 mg PO DAILY #10 tablet 06/05/17 [Rx] Levofloxacin [Levaquin] 250 mg PO DAILY #3 tablet 06/05/17 [Rx] OxyCODONE/APAP 5/325 [Percocet 5/325 MG] 1 each PO Q4HR PRN #30 tablet 06/05/17 [Rx] Allergies/Adverse Reactions: 3 Allergy/AdvReac Type Severity Reaction Status Date / Time Penicillins Allergy Hives Verified 08/07/16 11:21 General Surgery Exam Initial Vital Signs Temp Pulse Resp BP Pulse Ox 97.4 F L 67 16 138/89 100 05/31/17 18:14 05/31/17 18:14 05/31/17 18:14 05/31/17 18:14 05/31/17 18:14 - General physical appearance well developed, well nourished, no distress - Eyes normal ocular movement - ENT atraumatic, normocephalic, CN 2-12 grossly intact - Neck trachea midline, no lymphadectomy, no venous distension - Respiratory normal expansion, clear to auscultation - Cardiovascular Cardiovascular exam: Present: RRR, no murmurs/rubs/gallops - Abdomen Abdomen general surgery: Present: bowel sounds present, soft, non tender Date of admission: 05/31/17 21:19 Primary care physician: Taryn Altamirano CNP Discharging clinician: Geno Alberto - Patient Status Disposition: Home, Self-Care Condition: Good - Discharge Instructions Instructions: Bowel Resection (DC) Follow Up With: Taryn Altamirano CNP [Primary Care Provider] - Cullen Langston MD [Partnered Physician] - Additional Instructions: Patient can shower today. Avoid lifting over 10 pounds or extraneous activities for 4-[address] for now. Walk as often as you are able to. Use incentive spirometer to help with breathing. This is important to help prevent lung infections. Keep incision clean and dry. OK to wash skin around incision with mild soap and water. Incision can be open to air. Take pain medication as prescribed. Ok to take home meds. Call us or go to emergency room for sudden chest pain or trouble breathing, fever > 101F, pain or tenderness in the leg, incision separates, nausea and vomiting that won't go away. - Hospital Course Hospital course: Mrs. Garcia is a 41 yo female with surgical history of multiple abdominal surgeries. 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 She presented with acute abdomen and unrelenting abdominal pain associated with vomiting on 05/31/17. CT abd/ pelvis without contrast showed high-grade small bowel obstruction. She is POD#5 exploratory laparotomy with small bowel resection and appendectomy by Dr. Langston. She is recovering well. Ambulating three times a day without assistance. She is tolerating PO diet with return of bowel function. Pain is well managed with percocet. Microbiology reveals UTI with E. Coli and Levoquin 250mg day#10/26 is started. 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 She is to follow-up with PCP. She will be discharged with Levoquin for continuation of therapy. Colace 100mg BID for bowel movement. Percocet 5/325 for pain management. - Time Spent with Patient Total time spent providing and/or coordinating discharge services: Greater than 30 minutes Labs on day of discharge: Labs from last 24 hours 06/05/17 06/05/17 06:53 06:53 WBC 3.8 L RBC 3.24 L Hgb 8.8 L Hct 28.1 L MCV 86.7 MCH 27.2 L MCHC 31.3 L RDW 13.3 Plt Count 159 MPV 12.3 Immature Gran % 0.3 Seg Neutrophils % 64.2 Lymphocytes % 24.0 Monocytes % 8.5 Eosinophils % 2.7 Basophils % 0.3 Neutrophils # 2.4 Lymphocytes # 0.9 Monocytes # 0.3 Eosinophils # 0.1 Basophils # 0.0 Sodium 144 Potassium 3.6 Chloride 110 H Carbon Dioxide 28 BUN 6 L Creatinine 0.58 Est GFR ( Amer) > 60 Est GFR (Non-Af Amer) > 60 BUN/Creatinine Ratio 10 Glucose 96 Calculated Osmolality 295 Calcium 8.2 L <Geno Alberto - Last Filed: 06/05/17 11:47> Date of Encounter: 06/05/17 - Discharge Diagnosis (1) DVT prophylaxis Status: Acute (2) Small bowel obstruction Status: Resolved (3) Status post small bowel resection Status: Acute General Surgery Exam Initial Vital Signs Temp Pulse Resp BP Pulse Ox 97.4 F L 67 16 138/89 100 05/31/17 18:14 05/31/17 18:14 05/31/17 18:14 05/31/17 18:14 05/31/17 18:14 - General physical appearance well nourished, no distress - Eyes PERRL, normal ocular movement - ENT atraumatic, normocephalic - Neck trachea midline - Respiratory normal expansion, clear to auscultation - Cardiovascular Cardiovascular exam: Present: RRR, no murmurs/rubs/gallops - Abdomen Abdomen general surgery: Present: bowel sounds present, soft, tender ( appropriate post op tenderness) - Integumentary Integumentary general surgery: Present: warm and dry, no abnormal pigmentation - Neurologic Present: CN 2-12 grossly intact - Musculoskeletal Present: normal gait, normal posture - Psychiatric Psychiatric general surgery: Present: A&Ox3, speech is normal Date of admission: 05/31/17 21:19 Primary care physician: Taryn Altamirano CNP - Patient Status Overall status at discharge: patient is progressing back to baseline - Diet and Activity Activity: increase activity as tolerated Diet: advance to your usual diet - Hospital Course Hospital course: Ms. Garcia is a 41 year old female - Time Spent with Patient Total time spent providing and/or coordinating discharge services: Labs on day of discharge: Labs from last 24 hours 06/05/17 06/05/17 06:53 06:53 WBC 3.8 L RBC 3.24 L Hgb 8.8 L Hct 28.1 L MCV 86.7 MCH 27.2 L MCHC 31.3 L RDW 13.3 Plt Count 159 MPV 12.3 Immature Gran % 0.3 Seg Neutrophils % 64.2 Lymphocytes % 24.0 Monocytes % 8.5 Eosinophils % 2.7 Basophils % 0.3 Neutrophils # 2.4 Lymphocytes # 0.9 Monocytes # 0.3 Eosinophils # 0.1 Basophils # 0.0 Sodium 144 Potassium 3.6 Chloride 110 H Carbon Dioxide 28 BUN 6 L Creatinine 0.58 Est GFR ( Amer) > 60 Est GFR (Non-Af Amer) > 60 BUN/Creatinine Ratio 10 Glucose 96 Calculated Osmolality 295 Calcium 8.2 L - Attending Attestation I examined this patient and my medical decision-making was reviewed with the Resident Physician. I agree with the documented findings, disposition and treatment plan as described except to the extent set forth below.
== END 2017-06-05 10:44 | disposition home or self-care (01) | DRG 221 ==
LOC: EMEROO 18:06 → 3ANU 21:19
PROVIDERS: ADMIT Surgery; ATTEND Surgery
PROC: GENAPPY (ICD-10-PCS; 2017-05-31 20:45)